=== PATIENT | male | born 1950 | race Caucasian/White ===

== ENCOUNTER 2018-06-29 19:28 | Emergency (ER) | payer MEDICARE, OTHER ==
[2018-06-29] MEDS ORDERED: Midazolam 1 MG/ML 2 ML SDV ONE (19:30)
[2018-06-29] MEDS ORDERED: Ketamine 500 mg/10 ML MDV ONE (19:31)
[2018-06-29] MEDS ORDERED: Etomidate 2 MG/ML 20 ML SDV IVPUSH ONE (20:00)
[2018-06-29] MEDS ORDERED: Succinylcholine 200 MG/10 ML MDV ONE (20:00)
[2018-06-29] MEDS ORDERED: Sodium Bicarbonate 8.4% 50 MEQ/50 ML Syringe ONE (20:00)
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
== END 2018-06-30 02:09 | disposition expired ==
LOC: JD.ED 19:28 → EDBD 19:28 → JD.ED 06-30 02:09
DX: S06.5X9A Traumatic subdural hemorrhage with loss of consciousness of unspecified duration, initial encounter (principal); S01.94XA Puncture wound with foreign body of unspecified part of head, initial encounter; S02.2XXA Fracture of nasal bones, initial encounter for closed fracture; S02.81XA Fracture of other specified skull and facial bones, right side, initial encounter for closed fracture; W32.0XXA Accidental handgun discharge, initial encounter
CPT/HCPCS: 31500; 36415; 51702; 70450; 80053; 82150; 83605; 85025; 85610; 85730; 86850; 86900; 86901; 86922; 96361; 96374; 96375; 99291; G0390; G0480; J0330; J2250; J3490